=== PATIENT | female | born 1950 | race Native Hawaiian/Other Pacific Islander ===

== ENCOUNTER → 2017-02-06 | Outpatient (CLI) | payer OTHER | LOC: BMCIMAGING 10:14 | PROVIDERS: ATTEND Physician Assistant | DX: R10.32 Left lower quadrant pain (principal); M25.552 Pain in left hip; R93.8 Abnormal findings on diagnostic imaging of other specified body structures; M51.36 Other intervertebral disc degeneration, lumbar region ==

== ENCOUNTER → 2017-02-14 | Outpatient (CLI) | payer OTHER ==
[~2017-02-14] MED LIST: GADOBUTROL 10 ML VIAL IVP ONE
== END ==
LOC: FIMAGING 08:20
PROVIDERS: ATTEND Physician Assistant
DX: M25.552 Pain in left hip (principal); M46.1 Sacroiliitis, not elsewhere classified; M76.02 Gluteal tendinitis, left hip; M51.36 Other intervertebral disc degeneration, lumbar region; M77.9 Enthesopathy, unspecified; D25.9 Leiomyoma of uterus, unspecified
CPT/HCPCS: 72197; A9585

== ENCOUNTER 2017-03-19 17:02 | Emergency (ER) | payer OTHER ==
[2017-03-19 17:13] VITALS: RESP 18
[2017-03-19] MEDS ORDERED: IOPAMIDOL (ISOVUE 370) 100 ML BTL IV ONE (19:27)
[2017-03-19] MEDS ORDERED: LIDOCAINE 2% VISCOUS 15 ML UDCUP PO ONE (19:36)
[2017-03-19] MEDS ORDERED: KETOROLAC 30 MG/1 ML SDV IVP ONE (19:36)
[2017-03-19] MEDS ORDERED: MAG HYDROX/AL HYDROX/SIMETH 30 ML UDCUP PO ONE (19:36)
--- NOTE | 2017-03-19 19:36 | EDPHY ---
H & P Time Seen by Provider: 03/19/17 19:10 HPI/ROS: CHIEF COMPLAINT: Upper abdominal, lower chest pain. HISTORY OF PRESENT ILLNESS: The patient is a 66-year-old female with a history of hypertension and depression who presents to the emergency department with abnormal laboratory studies. The patient was seen [place] today [place] [facility] She states that she has had lower rib discomfort. This is worse with breathing. She has had no cough or shortness of breath. No nausea or vomiting. The patient does state for the past few nights she has had "reflux" type symptoms. No fevers or chills. No leg pain or swelling. No recent travel. Patient was seen at [facility] and had an elevated D-dimer 1.03. Her chest x-ray was normal. She was contacted and told to come to the emergency department. REVIEW OF SYSTEMS: My complete review of systems is negative except as mentioned in the HPI. Past Medical/Surgical History: Includes hypertension and depression Social history: The patient does not smoke Smoking Status: Never smoked Physical Exam: Vitals noted GENERAL: Well-appearing, in no acute distress, alert. HEENT: Eyes normal to inspection, normal pharynx, no signs of dehydration. NECK: No thyromegaly, no lymphadenopathy, supple. RESPIRATORY: Clear to auscultation bilaterally, no rales, rhonchi or wheezing. CVS: Regular rate and rhythm, no rubs, murmurs, or gallops. Chest wall: No tenderness palpation ABDOMEN: Soft, nontender, nondistended, no organomegaly. Normal. BACK: Normal to inspection, no CVA tenderness. SKIN: Normal color, no rash, warm, dry. No pallor. EXTREMITIES: No pedal edema, no calf tenderness, no Homans sign or cords, no joint swelling. NEURO/PSYCH: Alert and oriented, normal mood and affect, normal motor sensory exam. Constitutional: Initial Vital Signs Temperature (C) 37.5 C 03/19/17 17:10 Heart Rate 81 03/19/17 17:10 Respiratory Rate 18 03/19/17 17:10 Blood Pressure 135/67 H 03/19/17 17:10 O2 Sat (%) 93 03/19/17 17:10 O2 Delivery Mode Room Air Allergies/Adverse Reactions: No Known Allergies Allergy (Verified 03/19/17 17:07) Home Medications: Medication Instructions Recorded FLUoxetine [PROzac] 10 mg PO 03/19/17 Famotidine [Pepcid 20 MG (*)] 20 mg PO BID #10 tab 03/19/17 Hydrochlorothiazide [HCTZ (*)] 25 mg PO DAILY 03/19/17 Medical Decision Making - Diagnostics EKG Interpretation: EKG shows normal sinus rhythm, normal rate, normal axis, normal intervals. There are no ST or T-wave abnormalities. EKG is normal as interpreted by me. Imaging Results: Imaging Impressions Chest/Thorax CTA 03/19/17 19:22 Impression: 1. No visible pulmonary embolus. 2. Scattered pulmonary nodules, most likely representing noncalcified granulomas but indeterminate. If the patient is a smoker or is high risk, unenhanced low dose chest CT for follow up in 12 months is considered optional. Otherwise, no further follow up is needed per Fleischner Society criteria. 3. Large hiatal hernia. 4. Additional findings, as above. Findings discussed with Francesca Faulkner M.D., on March 19, 2017 at 2010. ED Course/Re-evaluation: In the emergency department I discussed possible etiologies with the patient. I answered all her questions. I reviewed her laboratory studies from this morning. Of note her CBC and chemistry are unremarkable. Creatinine was normal. Her LFTs were normal. There was no lipase ordered. Troponin was negative. The chest x-ray was unremarkable. Her D-dimer was elevated at 1.03. The patient was given Toradol 30 mg IV for pain. She is given a GI cocktail. I discussed this with the patient. A lipase was added. EKG was ordered. CT angiogram was ordered. lipase normal. CT angiogram of the chest: Please refer the dictated report by Dr. Kirby. No pulmonary embolus. No infiltrate. The patient has a large hiatal hernia. I discussed the results with the patient. The hiatal hernia noted on CT could be contributing to her symptoms. I informed the patient of the diagnosis and findings. She will continue to take GI cocktail as needed. She was given a prescription Pepcid. She will follow up with surgery. She is given warnings prior to leaving. Differential Diagnosis: My differential includes but is not limited to pulmonary embolus, hiatal hernia , reflux, pancreatitis, pleurisy - Data Points Laboratory Results: 03/19/17 19:45 Lipase 210 IU/L IU/L (23-300) Medications Given: Discontinued Medications Al Hydroxide/Mg Hydroxide (Maalox Susp) 30 ml PO ONCE ONE Stop: 03/19/17 19:37 Last Admin: 03/19/17 19:50 Dose: 30 ml Ketorolac Tromethamine (Toradol) 30 mg IVP EDNOW ONE Stop: 03/19/17 19:37 Last Admin: 03/19/17 19:49 Dose: 30 mg Lidocaine (Lidocaine 2% Viscous) 15 ml PO ONCE ONE Stop: 03/19/17 19:37 Last Admin: 03/19/17 19:50 Dose: 15 ml Departure - Departure Disposition: Home, Routine, Self-Care Clinical Impression: Epigastric abdominal pain, Hiatal hernia Condition: Good Instructions: Hiatal Hernia (ED) Additional Instructions: Your found to have a hiatal hernia on exam. You need close follow-up with primary care physician. This can be causing your symptoms. Referrals: Cara Chawla PA [Primary Care Provider] - 2-3 days without fail Romulo Hernandez MD [Medical Doctor] - 5-7 days, call for appt. Prescriptions: Famotidine [Pepcid 20 MG (*)] 20 mg PO BID #10 tab
--- NOTE | 2017-03-19 20:00 | CPEKG ---
Heart Rate: 72 RR Interval: 833 P-R Interval: 132 QRSD Interval: 88 QT Interval: 396 QTC Interval: 434 P [place]: 31 QRS [place]: 7 T Wave [place]: -19 EKG Severity - BORDERLINE ECG - EKG Impression: SINUS RHYTHM EKG Impression: BORDERLINE T ABNORMALITIES, INFERIOR LEADS Electronically Signed By: Francesca Faulkner 19-Mar-2017 22:49:11
[2017-03-19 20:54] VITALS: BP 126/60; PULSE 70; TEMP 98.8; O2SAT 90
== END 2017-03-19 20:54 | disposition home or self-care (01) ==
DX: K44.9 Diaphragmatic hernia without obstruction or gangrene (principal); I10 Essential (primary) hypertension
CPT/HCPCS: 71275; 93005; 96374; 99285; J1885; Q9967

== ENCOUNTER → 2017-03-19 | Outpatient (CLI) | payer OTHER | LOC: BMCIMAGING 10:18 | PROVIDERS: ATTEND Physician Assistant | DX: R06.02 Shortness of breath (principal) ==

== ENCOUNTER 2017-04-29 05:53 | Inpatient (IN) | payer OTHER ==
[2017-04-29] MEDS ORDERED: cefOXitin SODIUM 2 GM in D5W 100 ML IV ONE (06:00)
[2017-04-29] MEDS ORDERED: LIDOCAINE 1% 2 ML INJ ID PRN (06:21)
[2017-04-29] MEDS ORDERED: LR 1,000 ML IV ONE (06:21)
[2017-04-29] MEDS ORDERED: LIDOCAINE 1% 2 ML INJ ONE (06:28)
[2017-04-29] MEDS ORDERED: MIDAZOLAM 2 MG/2 ML VIAL IVP ONE (06:52)
--- NOTE | 2017-04-29 06:53 | PDANEPAE ---
ANE Past Medical History - Cardiovascular History Hx Hypertension: Yes Hx Arrhythmias: No Hx Chest Pain: No Hx Coronary Artery / Peripheral Vascular Disease: No Hx CHF / Valvular Disease: No Hx Palpitations: No - Pulmonary History Hx COPD: No Hx Asthma/Reactive Airway Disease: No Hx Recent Upper Respiratory Infection: No Hx Oxygen in Use at Home: No Hx Sleep Apnea: Yes Sleep Apnea Screening Result - Last Documented: Positive Pulmonary History Comment: RICARDO DX 2010 IS SUPPOSED TO USE C-PAP DOES NOT TOLERATE MASK. TRIES TO SLEEP ON HER SIDE - Neurologic History Hx Cerebrovascular Accident: No Hx Seizures: No Hx Dementia: No - Endocrine History Hx Diabetes: No Hypothyroid: No Hyperthyroid: No Obesity: yes, mild - Renal History Hx Renal Disorders: No - Liver History Hx Hepatic Disorders: No - Neurological & Psychiatric Hx Hx Neurological and Psychiatric Disorders: Yes Neurological / Psychiatric History Comment: DEPRESSION - Cancer History Hx Cancer: No - Congenital Disorder History Hx Congenital Disorders: No - GI History GERD: severe Hx Gastrointestinal Disorders: Yes Gastrointestinal History Comment: DIVERTICULOSIS. NEW DX HIATAL HERNIA - Other Health History Other Health History: ANEMIA. MUSCLE INFLAMMATION. LT HIP OVER PAST 2 MONTHS. SLOWLY IMPROVING - Chronic Pain History Chronic Pain: Yes (LT HIP,GI) - Surgical History Prior Surgeries: EGD 03/2017. RT ACHILLES TENDON REPAIR. SCAR REMVL LT KNEE ANE Review of Systems Review of Systems: - Exercise capacity METS (RN): 4 METS ANE Patient History - Allergies Allergies/Adverse Reactions: No Known Allergies Allergy (Verified 03/19/17 17:07) - Home Medications Home Medications: FLUoxetine [Prozac 20 MG (*)] 60 mg PO DAILY 04/14/17 [Last Taken 04/29/17 05:00 ] Famotidine [Pepcid AC] 10 mg PO BID 04/14/17 [Last Taken 04/28/17 21:00] Ferrous Sulfate [Ferrous Sulf 325 MG (*)] 325 mg PO DAILY 04/14/17 [Last Taken 04/22/17] Valsartan/Hydrochlorothiazide [Diovan Hct 160-12.5 mg Tab] 1 each PO DAILY 04/14 [Last Taken 04/28/17 08:00] Herbals/Supplements -Info Only 1 ea PO DAILY 04/15/17 [Last Taken Unknown] Multivitamins [Multivitamin (*)] 1 each PO DAILY 04/29/17 [Last Taken 04/22/17] - NPO status NPO Since - Liquids (Date): 04/28/17 NPO Since - Liquids (Time): 21:00 NPO Since - Solids (Date): 04/28/17 NPO Since - Solids (Time): 21:00 - Anes Hx Anes Hx: no prior problems - Smoking Hx Smoking Status: Never smoked - Family Anes Hx Family Anes Hx: neg - N/A ANE Labs/Vital Signs - Labs Result Diagrams: 04/29/17 06:30 - Vital Signs Blood Pressure: 135/73 Heart Rate: 73 Respiratory Rate: 18 O2 Sat (%): 90 Height: 165.1 cm Weight: 81.647 kg ANE Physical Exam - Airway Neck exam: FROM Mallampati Score: Class 2 Mouth exam: normal dental/mouth exam - Pulmonary Pulmonary: no respiratory distress, no rales or rhonchi, clear to auscultation - Cardiovascular Cardiovascular: regular rate and rhythym - ASA Status ASA Status: II ANE Anesthesia Plan Anesthesia Plan: general endotracheal anesthesia
[2017-04-29 06:57] LABS: ANION GAP 16 mEq/L (8-16); CALCIUM 9.6 mg/dL (8.5-10.4); CARBON DIOXIDE 21 mEq/l (22-31); CHLORIDE 106 mEq/L (97-110); CREATININE 0.9 mg/dL (0.6-1.0); GLOMERULAR FILTRATION RATE > 60; GLUCOSE 122 mg/dL (70-100); POTASSIUM 3.8 mEq/L (3.5-5.2); SODIUM 143 mEq/L (134-144)
[2017-04-29] MEDS ORDERED: BUPIVACAINE 0.5% 30 ML SDV ONE (06:58)
--- NOTE | 2017-04-29 07:27 | PDGENHP ---
History & Physical Chief Complaint: GERD, PEH History of Present Illness: 3-4 year h/o reflux. Recent episode of CP with paraesophageal hernia on CT. Currently no CP. Pertinent Past, Social, Family History: Depression, elevated lipids, RICARDO, HTN. Uterine leiomyoma. Diovan, Fluoxetine. NKDA Relevant Physical Exam: Alert, NAD. Abd soft, NTTP Cardiorespiratory Assessment: CTA B RRR. Plan robotic PEHR/fundoplication. Risks/benefits reviewed with patient and family. Questions answered.
[2017-04-29] MEDS ORDERED: PROPOFOL/EMULSION 500 MG/50 ML BOTTLE IV ONE (07:28)
[2017-04-29] MEDS ORDERED: fentaNYL 100 MCG/2 ML INJ ONE ×2 (07:28→10:10)
[2017-04-29] MEDS ORDERED: REMIFENTANIL HCL 1 MG VIAL ONE (07:28)
[2017-04-29] MEDS ORDERED: PROPOFOL 200 MG/20 ML VIAL ONE (07:28)
[2017-04-29] MEDS ORDERED: LIDOCAINE 2% 5 ML SDV ONE (07:32)
[2017-04-29] MEDS ORDERED: DEXAMETHASONE 4 MG/ML VIAL ONE (07:32)
[2017-04-29] MEDS ORDERED: ONDANSETRON 4 MG/2 ML VIAL ONE (07:33)
[2017-04-29] MEDS ORDERED: RANITIDINE 50 MG/2 ML VIAL ONE (07:33)
[2017-04-29] MEDS ORDERED: ROCURONIUM 50 MG/5 ML VIAL ONE (07:33)
[2017-04-29] MEDS ORDERED: epHEDrine SULFATE 10 MG/ML SYR ONE ×2 (08:17)
[2017-04-29] MEDS ORDERED: PHENYLEPHRINE HCL 100 MCG/ML SYR ONE (08:49)
[2017-04-29] MEDS ORDERED: LR 500 ML IV PRN (09:13)
[2017-04-29] MEDS ORDERED: PROMETHAZINE HCL 25 MG/ML INJ IVP PRN (09:13)
[2017-04-29] MEDS ORDERED: ACETAMINOPHEN 500 MG TAB PO PRN (09:13)
[2017-04-29] MEDS ORDERED: ONDANSETRON 4 MG/2 ML VIAL IVP PRN ×2 (09:13→09:46)
[2017-04-29] MEDS ORDERED: HYDROCODONE/APAP 5/325 TAB PO PRN (09:13)
[2017-04-29] MEDS ORDERED: OXYCODONE/APAP 5/325 TAB PO PRN (09:13)
[2017-04-29] MEDS ORDERED: NALOXONE HCL 0.4 MG/ML INJ IVP PRN (09:13)
[2017-04-29] MEDS ORDERED: KETOROLAC 30 MG/1 ML SDV ONE (09:24)
--- NOTE | 2017-04-29 09:48 | POSTOPPROG ---
Post Op Note Date of Operation: 04/29/17 Surgeon: Dong Yu Hydraulic Strainer Operator: Dr. Myers Anesthesiologist: Dr. Zelaya Anesthesia: GET(General Endotracheal) Pre-op Diagnosis: PEH, GERD Post-op Diagnosis: Same Procedure: Robotic PEHR, fundoplication Inf/Abcess present in the surg proc area at time of surgery?: No EBL: Minimal
--- NOTE | 2017-04-29 09:53 | POSTANESTH ---
Post Anesthetic Evaluation Cardiovascular Status: Normal, Stable Respiratory Status: Normal, Stable Level of Consciousness/Mental Status: Can Participate in Eval Pain Control: Adequate, Prn Tx Ordered Nausea/Vomiting Control: Adequate, Prn Tx Ordered Complications Possibly Related to Anesthesia: None Noted
[2017-04-29] MEDS: fentaNYL 100 MCG/2 ML INJ IVP PRN ×2 (10:13→10:22)
[2017-04-29] MEDS ORDERED: HYDROmorphONE/DILAUDID 1 MG/ML INJ ONE (10:41)
[2017-04-29] MEDS: HYDROmorphONE/DILAUDID 1 MG/ML INJ IVP PRN ×2 (10:43→11:12)
[2017-04-29] MEDS: LR 1,000 ML IV SCH ×2 (11:50→20:28)
[2017-04-29] MEDS: HYDROmorphone HCL/NS/PF 0.4 MG/2 ML SYR IVP PRN ×3 (12:36→20:20)
--- NOTE | 2017-04-29 12:36 | GOP ---
[f rep st] OPERATIVE REPORT DATE OF OPERATION: 04/29/2017 SURGEON: Davi Yu MD PHYSICIST CRYOGENICS: Dr. Myers, whose presence was requested by me and medically necessary for the safe and ti merced completion of this case. ANESTHESIA: General endotracheal anesthesia. ANESTHESIOLOGIST: Chuckie Zelaya DO PREOPERATIVE DIAGNOSIS: 1. Paraesophageal hernia. 2. Gastroesophageal reflux disease. POSTOPERATIVE DIAGNOSIS: PROCEDURE PERFORMED: 1. Robotic paraesophageal hernia repair. 2. Robotic partial fundoplication. FINDINGS: Patient had a moderate-sized paraesophageal hernia. Primary closure was performed. Parti al posterior wrap was performed. ESTIMATED BLOOD LOSS: 20 cc. INDICATIONS: 66-year-old female with a history of reflux. Patient had an episode of chest pain, and CT scan demonstrated a large diaphragmatic hernia. Risks and benefits of the procedure were discuss ed the patient and her family, their questions were answered, and they wished to proceed. DESCRIPTION OF PROCEDURE: The patient was in the supine position initially. After the induction of adequate general endotracheal anesthesia, the patient was moved to the modified lithotomy position. The patient was then prepped and draped in the standard surgical fashion. Marcaine 0.5% was injected throughout the supraumbilical area for local anesthesia. An 8-mm incision was made and the abdominal wall was elevated. A Veress needle was inserted and afte r noting proper pressures, the abdomen was insufflated with carbon dioxide. An 8-mm trocar was place d and a camera followed. There was no apparent damage from trocar placement. Four more ports were p laced, three 8-mm ports in the upper abdomen and one 5-mm port in the right mid abdomen. These were all placed under direct vision after injecting 0.5% Marcaine for local anesthesia. The robot was then docked without difficulty. Robotic instruments were then used to perform the disse ction. The Harmonic scalpel was used to take down the gastrohepatic ligament. Dissection was then c arried over the esophagus exposing the right kodi. The dissection proceeded laterally and the superi or portion of the esophagus and the left kodi were exposed. The vagus nerves were seen and preserved throughout the entire case. Next, the posterior window was opened using blunt dissection and the Burrell rmonic scalpel. Once this window was achieved, attention was turned to the short gastrics. A significant portion of the short gastric vessels was taken down using a Harmonic scalpel. This leticia ed up the fundus in its entirety. The mediastinal dissection was then performed. This was carefully performed using blunt dissection and minimal energy component. Once the entire visible portion of t he esophagus was freed and the gastroesophageal junction returned to the abdomen, the repair of the h iatal hernia ensued. Interrupted sutures of 3-0 silk were used to approximate the hiatus posteriorly . Enough room was seen for the esophagus and an instrument tip. The fundus was then brought posteri josy to the esophagus and the wrap performed. Initial suture took bites of stomach, anterior esophag us, and stomach. Care was taken again to avoid the vagus nerve. Two more sutures of 3-0 silk were u sed to create the wrap inferiorly. This was a loose floppy wrap. No other lesions were identified a t this time. Good hemostasis was noted. The robot was then undocked. Trocars were removed under direct vision. The pneumoperitoneum was all owed to escape. The wounds were thoroughly irrigated. The skin at all sites was closed using 4-0 Mo nocryl in a subcuticular suture. Wounds were sterilely dressed and the patient was returned to the s upine position and extubated. The patient was then taken to the PACU in stable condition. COMPLICATIONS: None. DRAINS: None. ADDENDUM: A partial posterior wrap was completed. After fixing the stomach to the diaphragm posteri josy, sutures of 2-0 silk were used to affix the wrap in a 270-degree formation. Good hemostasis not ed. /[id number]/MODL
[2017-04-30] MEDS: OXYCODONE/APAP 5/325 TAB PO PRN ×3 (04:40→19:03)
[2017-04-30] MEDS: LR 1,000 ML IV SCH (04:40)
--- NOTE | 2017-04-30 09:01 | SOAPPROG ---
SOAP Progress Note Assessment/Plan: Assessment: Plan: 04/30/17 08:59 s/p paraesophageal hernia repair, still with neck/shoulder pain. Will check CXR. Cont clears, discussed diet again with patient and family. If CXR normal and pain improves plan d/c later today. Subjective: Patient c/o neck/shoulder pain, no improvement. Some incisional discomfort, improved with meds. Pawel po well, no N/V. Ambulating, voiding. Objective: Vital Signs Temp Pulse Resp BP Pulse Ox 36.6 C 57 L 16 133/72 H 94 04/30/17 04:00 04/30/17 08:00 04/30/17 08:00 04/30/17 08:00 04/30/17 08:00 Laboratory Results 04/29/17 06:30 04/29/17 04/30/17 05/01/17 05:59 05:59 05:59 Intake Total 4828 Output Total 20 Balance 4808 Alert, NAD RRR Abd soft, NTTP Inc C/D/I ICD10 Worksheet Patient Problems: Problems Problem Status Onset Acute respiratory failure Acute
[2017-04-30] MEDS: FLUoxetine 20 MG CAP PO SCH (09:29)
--- NOTE | 2017-04-30 11:56 | ASMTCASEMG ---
Living Arrangements What is your living Answers: With Child(desirae) arrangement? Who do you live with? Type Of Residence What kind of residence do Answers: House you live in? Discharge Plan Comments Coordination Status Comments Notes: Pt is a 66 y/o female admitted for gartoesophageal reflux disease. Surgery consulted w/ pt today. Pt will also have an x-ray done. Anticipates that pt will d/c independent when medically stable. CM available for d/c needs. Date Signed: 04/30/2017 11:55 AM Electronically Signed By:KAROLINA Solis
[2017-04-30] MEDS ORDERED: KETOROLAC 15 MG/1 ML SDV IVP SCH (14:00)
[2017-04-30] MEDS: ENOXAPARIN 30 MG/0.3 ML SYR SC SCH (18:22)
[2017-05-01] MEDS: OXYCODONE/APAP 5/325 TAB PO PRN ×2 (01:05→08:25)
[2017-05-01 07:53] VITALS: BP 129/72; PULSE 53; RESP 20; TEMP 98.2; O2SAT 94
[2017-05-01] MEDS: FLUoxetine 20 MG CAP PO SCH (08:25)
[2017-05-01] MEDS: ENOXAPARIN 30 MG/0.3 ML SYR SC SCH (08:25)
--- NOTE | 2017-05-01 10:49 | ASDISCHSUM ---
Discharge Information Plan Status:Home with No Needs Medically Cleared to Leave: Discharge Date:05/01/2017 09:55 AM CM D/C Disposition:Home, Routine, Self-Care ADT D/C Disposition:Home, Routine, Self-Care Projected Discharge Date:05/01/2017 09:55 AM Transportation at D/C: Discharge Delay Reason: Follow-Up Date:05/01/2017 09:55 AM Discharge Slot: Final Diagnosis: Placement Information Patient Contact Information Contact Name:GIANLUCA Relationship:Daughter Address:[address] City:[facility] Phone: [facility]/Zip Code:[place] [address] Email: Financial Information Financial Class: Primary Plan Desc:MEDICARE OUTPATIENT Primary Plan Number:[id number] Secondary Plan Desc:GERARDO PPO Secondary Plan Number:[id number] Assessment Information [facility] Initial CM Assessment Living Arrangements What is your living Answers: With Child(desirae) arrangement? Who do you live with? Type Of Residence What kind of residence do Answers: House you live in? Discharge Plan Comments Coordination Status Comments Notes: Pt is a 66 y/o female admitted for gartoesophageal reflux disease. Surgery consulted w/ pt today. Pt will also have an x-ray done. Anticipates that pt will d/c independent when medically stable. CM available for d/c needs. Date Signed: 04/30/2017 11:55 AM Electronically Signed By:KAROLINA Solis Case Management Discharge Plan Note Case Management Discharge Discharge Order Complete? Answers: Yes Patient to Obtain Answers: Independently Medications Discharge Comments Notes: Pt. d/c'ed independently today. Date Signed: 05/01/2017 09:46 AM Electronically Signed By:Aziza Rodriguez LCSW Intervention Information Intervention Type:*RODRIGUEZ-Signed Date of Service:04/30/2017 09:57 AM Patient Type:Observation Staff Member:KAROLINA Leon Michelle Hours: Discipline: Severity: Comment: Intervention Type:*Occurence 72 Date of Service:04/29/2017 09:45 AM Patient Type:Inpatient Staff Member:NEEL Anaya, Lisa Hours:0.25 Discipline: Severity:1 (0-1 Hours) Comment:[facility] 72 for 04/29/2017 09:45-04/30/2017 18:08 as patient discharged 05/01/2017 07:55 (< 2 MN LOS after patient admission status changed from observation to inpatient status)
== END 2017-05-01 09:55 | disposition home or self-care (01) | DRG 328 ==
LOC: INTOOBSV 05:53 → F3E 05:53 → OBSVTOIN 04-30 18:08
PROVIDERS: ADMIT Surgery; ATTEND Surgery
PROC: 8E0W4CZ Robotic Assisted Procedure of Trunk Region, Percutaneous Endoscopic Approach (ICD-10-PCS; principal; 2017-04-30)
PROC: 0DV44ZZ Restriction of Esophagogastric Junction, Percutaneous Endoscopic Approach (ICD-10-PCS; principal; 2017-04-30)
PROC: 0BQT4ZZ Repair Diaphragm, Percutaneous Endoscopic Approach (ICD-10-PCS; principal; 2017-04-30)
DX: K44.9 Diaphragmatic hernia without obstruction or gangrene (principal); K21.9 Gastro-esophageal reflux disease without esophagitis
CPT/HCPCS: J0694; J1100; J1170; J1650; J1885; J2250; J2370; J2405; J2704; J2780; J3010

== ENCOUNTER → 2017-06-18 | Outpatient (CLI) | payer OTHER | LOC: CIMAGING 09:37 | PROVIDERS: ATTEND Physician Assistant | DX: Z12.31 Encounter for screening mammogram for malignant neoplasm of breast (principal) ==

== ENCOUNTER → 2017-10-09 | Outpatient (CLI) | payer OTHER | LOC: BMCIMAGING 11:58 | PROVIDERS: ATTEND Physician Assistant | DX: R20.2 Paresthesia of skin (principal); M51.36 Other intervertebral disc degeneration, lumbar region ==

== ENCOUNTER → 2018-07-28 | Outpatient (CLI) | payer OTHER | LOC: CIMAGING 11:18 | PROVIDERS: ATTEND Physician Assistant | DX: Z12.31 Encounter for screening mammogram for malignant neoplasm of breast (principal) ==

== ENCOUNTER → 2018-10-26 | Outpatient (CLI) | payer OTHER | LOC: EMCIMAGING 09:47 | PROVIDERS: ATTEND Physician Assistant | DX: Z13.820 Encounter for screening for osteoporosis (principal) | CPT/HCPCS: 77080-PN ==